=== PATIENT | male | born 1980 | race Caucasian/White ===

== ENCOUNTER 2019-09-07 15:22 | Emergency (ER) | payer OTHER ==
[~2019-09-07] VITALS: Ht 170.2 cm; Wt 63.6 kg
[2019-09-07 15:28] VITALS: BP 144/75
== END 2019-09-07 16:15 | disposition home or self-care (01) ==
LOC: ER 15:23
DX: F41.9 Anxiety disorder, unspecified (principal)
CPT/HCPCS: 93005; 99283